=== PATIENT | male | born 2000 | race Two or more races ===

== ENCOUNTER 2025-04-05 18:16 | Emergency (ER) | payer MEDICAID ==
[~2025-04-05] VITALS: Ht 160 cm; Wt 78.5 kg
[2025-04-05 18:32] VITALS: BP 98/67
[2025-04-05] MEDS ORDERED: BENZ1LOZ58 PO (18:54)
[2025-04-05] MEDS ORDERED: ACET-2030 PO (18:54)
[2025-04-05] MEDS ORDERED: BENZ-13 PO (18:54)
[2025-04-05] MEDS ORDERED: IBUP-1957 PO (18:54)
[2025-04-05] MEDS ORDERED: ACETAMINOPHEN 325 MG TABLET ONE (19:08)
[2025-04-05 19:14] VITALS: TEMP 101
[2025-04-05] MEDS: ACETAMINOPHEN 325 MG TABLET PO ONE (19:14)
[2025-04-05 19:20] VITALS: O2SAT 98
== END 2025-04-05 19:21 | disposition home or self-care (01) ==
LOC: ER 18:19
DX: J06.9 Acute upper respiratory infection, unspecified (principal); J02.9 Acute pharyngitis, unspecified; R05.9 Cough, unspecified; R50.9 Fever, unspecified; Z79.1 Long term (current) use of non-steroidal anti-inflammatories (NSAID); Z20.822 Contact with and (suspected) exposure to COVID-19
CPT/HCPCS: 86403-TC; 87070-TC